=== PATIENT | female | born 1955 | race Asian ===

== ENCOUNTER 2021-01-10 18:25 | Inpatient (IN) | payer MEDICARE, BC ==
[~2021-01-10] VITALS: Ht 160 cm; Wt 52.3 kg
[2021-01-10] MEDS ORDERED: LEXAPRO PO (19:23)
[2021-01-10] MEDS ORDERED: ZYPREXA PO (19:23)
--- NOTE | 2021-01-10 21:00 | NUR ---
Restraint was not applied due to patient being directable. Patient attempting to elope from ER. ERMD aware.
[2021-01-10 21:02] LABS: HEMATOCRIT 39.9 % (31.2-41.9); MEAN CORPUSCULAR HEMOGLOBIN 21.8 uug (24.7-32.8); MEAN CORPUSCULAR VOLUME 68.3 fL (75.5-95.3); PLATELET COUNT (AUTO) 306 K/uL (179-408)
[2021-01-10 21:13] LABS: CARBON DIOXIDE 28 mmol/L (21-32); CHLORIDE 104 mmol/L (98-107); CREATININE 0.7 mg/dL (0.6-1.3); ETHANOL < 3 MG/DL (0-0); GLUCOSE 123 mg/dL (74-106); POTASSIUM 3.4 mmol/L (3.5-5.1); UREA NITROGEN, BLOOD 21 mg/dL (7-18)
[2021-01-10 21:17] LABS: ALANINE AMINOTRANSFERASE 13 U/L (14-59); ALKALINE PHOSPHATASE 74 U/L (50-136); ASPARTATE AMINOTRANSFERASE 19 U/L (15-37); BILIRUBIN,DIRECT 0.2 mg/dL (0.0-0.2); BILIRUBIN,TOTAL 0.8 mg/dL (0.2-1.0); TOTAL PROTEIN, SERUM 8.5 g/dL (6.4-8.2)
[2021-01-10 21:18] LABS: ACETAMINOPHEN < 2.0 ug/mL (10-30)
[2021-01-10] MEDS ORDERED: POTASSIUM BICARBONATE/CIT AC 25 MEQ TABLET.EFF PO ONE (21:30)
[2021-01-10] MEDS ORDERED: POTASSIUM BICARBONATE/CIT AC 25 MEQ TABLET.EFF ONE (21:55)
--- NOTE | 2021-01-10 22:00 | NUR ---
Patient attempted to Elope ER twice. Called hospital secruity to standby and watch patient as 1:1.
--- NOTE | 2021-01-10 22:35 | NUR ---
Patient's daughter will bring home meds in AM. Kira Askew
--- NOTE | 2021-01-10 22:37 | NUR ---
Medically cleared by ERMD.
--- NOTE | 2021-01-11 00:14 | NUR ---
Transfered to 3rd floor via wheelchair as MHU overflow.
--- NOTE | 2021-01-11 00:15 | NUR ---
65 YEAR OLD FEMALE BROUGHT TO MED-SURG UNIT( GPS OVERFLOW) FROM ER VIA WHEELCHAIR, ACCOMPANIED BY ER STAFF AND 1:1 SITTER. PT UNDER THE CARE OF DR. BALDWIN AND DR. COUCH. PT ON A 5150 HOLD FOR DTS AND GD. ACCORDING TO THE HOLD ,PT IS REPEATEDLY WALKING OUT OF THE HOUSE NAKED STATING "GHOST" ARE HERE " TO TAKE HER AWAY" AND THAT "HER LIFE IS ENDING." DAUGHTER SUSPECTS PT NOT TAKING HER PSYCHIATRIC MEDICATIONS. RN CONCURS WITH THE HOLD. ADVISEMENT AND PATIENT RIGHTS HANDBOOK GIVEN. UPON FACE TO FACE ASSESSMENT, PT APPEARS TO REFLECT WHAT IS ON THE HOLD. PT IS ALERT AND ORIENTEDX2 AND COOPERATIVE WITH ASSESSMENT. PT NO HALLUCINATIONS NOTED AT THIS TIME. ORIENTED PATIENT ABOUT THE UNIT RULES. VITAL SIGNS STABLE. PATIENT IS ABLE TO AMBULATE. PT REFUSED TO LET STAFF CHECKED HER SKIN AND TAKE OFF HER CLOTHES. RN ASKED IF SHE HAS ANY WOUNDS AND PT STATED NO WOUND. PT REFUSED TO LET HER PHOTO TAKEN. SENIOR LIVING ASSESSMENT DONE. BELONGING LIST DONE. SAFETY INITIATED. PT IN NO PHYSICAL DISTRESS. WILL CONTINUE TO MONITOR. SITTER AT BEDSIDE FOR SAFETY.
[2021-01-11 00:38] VITALS: BP 148/61
[2021-01-11] MEDS ORDERED: LORAZEPAM 0.5 MG TABLET PO PRN (00:45)
[2021-01-11] MEDS ORDERED: ACETAMINOPHEN 325 MG TABLET PO PRN (00:45)
[2021-01-11] MEDS ORDERED: BLOOD SUGAR DIAGNOSTIC 1 EACH STRIP VI ONE (00:45)
[2021-01-11] MEDS ORDERED: MAGNESIUM HYDROXIDE 30 ML LIQUID UDC PO PRN (00:45)
[2021-01-11] MEDS ORDERED: ZOLPIDEM 5 MG TABLET PO PRN (00:45)
[2021-01-11] MEDS ORDERED: MAG HYDROX/AL HYDROX/SIMETH 30 ML LIQUID UDC PO PRN (00:45)
--- NOTE | 2021-01-11 05:59 | NUR ---
PT IN NO ACUTE DISTRESS. SITTER AT BEDSIDE FOR SAFETY. PT ON ROOM AIR. PT AFEBRILE AND VITAL SIGNS WNL. PT WITH NO HALLUCINATIONS. PT ALERT AND ORIENTEDX2. SAFETY AND COMFORT PROVIDED. ALL NEEDS ARE MET. WILL ENDORSE TO INCOMING NURSE FOR CONTINUITY OF CARE.
--- NOTE | 2021-01-11 08:00 | NUR ---
pt in bed, with 1:1 sitter at bedside, on room air, no signs of distress, no reports of pain, ambulatory, pt on 5150 hold. will continue to monitor.
[2021-01-11] MEDS: VENLAFAXINE XR 37.5 MG CAP.SR.24H PO SCH (11:18)
--- NOTE | 2021-01-11 11:39 | NUR ---
Firearms Report: Non Destructive Testing Technician completed and submitted a [employer] firearms report for 5150 grave disability certifications. A copy of report has been placed in patient chart.
--- NOTE | 2021-01-11 13:58 | NUR ---
pt transferred back down to [facility]. pt chart giving to INSULATION INSTALLER to take to psych nurse.
--- NOTE | 2021-01-11 14:45 | NUR ---
GPS: Pt arrived to mental health unit. wheelchaired by a TRAVEL AGENT from MedSurg unit. pt alert/oriented x3. pt verbally responsive when asked and denies any discomfort at this time. received report from MS nurse about the pt. Pt had a good spirit talking about her country in [facility]. Spoke to Jennifer, her daughter about home meds and she mentioned about pr getting escitalopram 10mg daily and olanzapine 5mg tab at night and ambien (unknown dose) for insomnia as needed. daughter said per DR. Chance, he weill change meds because it knocks off the pt and pt have episode of trashing the medications at home.
[2021-01-11 16:00] VITALS: BP 129/73
[2021-01-11 20:34] VITALS: BP 124/73
[2021-01-11] MEDS: QUETIAPINE FUMARATE 25 MG TABLET PO SCH (20:47)
[2021-01-12 07:30] VITALS: BP 125/69
[2021-01-12] MEDS: VENLAFAXINE XR 37.5 MG CAP.SR.24H PO SCH (09:12)
--- NOTE | 2021-01-12 15:24 | NUR ---
[facility] Family Contact: SONY spoke with patient's daughter, Jennifer ([phone]) and discussed treatment and discharge plan. Jennifer stated they would like the patient to return home. SONY discussed safe discharge planning and aftercare resources. SONY and Jennifer discussed the possibility of Home Health Services and/or Caregiving resources.
--- NOTE | 2021-01-12 15:24 | NUR ---
[facility] Initial Discharge Plan: Pt resides at home [address] [place] [address] with her . Patient's daughter, Jennifer ([phone]) is involved in the treatment and discharge plan. Jennifer stated they would like the patient to return home. SONY will continue to work with patient, family and MD to ensure a safe and proper discharge plan.
--- NOTE | 2021-01-12 15:44 | NUR ---
Treatment Plan: Pt unable to sign treatment plan form due to disorganized thought process.
--- NOTE | 2021-01-12 15:52 | NUR ---
Gps/Platform Inspector- Isolative,, making simple needs known, encouraged participation in her group therapy, encouraged to verbalized feelings and needs.
[2021-01-12 16:00] VITALS: BP 115/76
[2021-01-12 19:57] VITALS: BP 126/70
[2021-01-12] MEDS: QUETIAPINE FUMARATE 25 MG TABLET PO SCH (20:04)
[2021-01-13 07:30] VITALS: BP 113/71
[2021-01-13] MEDS: VENLAFAXINE XR 37.5 MG CAP.SR.24H PO SCH (09:19)
[2021-01-13] MEDS: GLUCERNA SHAKE 237 ML CAN PO SCH ×2 (12:37→16:25)
--- NOTE | 2021-01-13 15:14 | NUR ---
Gps/Tool Carrier- Informed patient the need to collect urine specimen for UA , claimed she just been to the bathroom, offered to try to void again no void noted. Will attempt to collect in a later time, per patient will notify staff
[2021-01-13 16:02] VITALS: BP 118/75
--- NOTE | 2021-01-13 17:17 | NUR ---
Gps/Stallion Keeper- After few tries, to the bathroom, was able to collect urine specimen for UA, sent to lab.Patient remains isolative, encouraged eating in the dinning room during meals.
[2021-01-13 17:21] LABS: *BILIRUBIN,URIN NEGATIVE (NEGATIVE); *BLOOD, URINE NEGATIVE (NEGATIVE); *CLARITY,URINE CLEAR (CLEAR); *COLOR,URINE YELLOW (YELLOW); *KETONES,URINE NEGATIVE (NEGATIVE); LEUKOCYTE ESTERASE ,URINE NEGATIVE (NEGATIVE); NITRITE, URINE NEGATIVE (NEGATIVE); UGLUCOSE NEGATIVE (NEGATIVE)
[2021-01-13 17:30] LABS: *AMPHETAMINE, URINE NEGATIVE (NEGATIVE); *CANNABINOID, URINE NEGATIVE (NEGATIVE); *COCCAINE, URINE NEGATIVE (NEGATIVE); *OPIATE, URINE NEGATIVE (NEGATIVE); *PHENCYCLIDINE SCREEN,URINE NEGATIVE (NEGATIVE)
[2021-01-13 20:09] VITALS: BP 119/63
[2021-01-13] MEDS: QUETIAPINE FUMARATE 25 MG TABLET PO SCH (20:48)
--- NOTE | 2021-01-14 06:30 | NUR ---
GPS: Pt.slept 9 hrs last night. Remains isolative,withdrawn,but denies SI. No further visual hallucinations reported. Safe environment provided. Will continue to monitor.
[2021-01-14 07:30] VITALS: BP 129/72
[2021-01-14] MEDS: VENLAFAXINE XR 37.5 MG CAP.SR.24H PO SCH (08:46)
[2021-01-14] MEDS: GLUCERNA SHAKE 237 ML CAN PO SCH ×2 (08:47→16:42)
--- NOTE | 2021-01-14 14:51 | NUR ---
Gps/Substance Abuse Technician- Refused to attend her group therapy this am, remains isolative, answers simple questions, guarded , denies any hallucinations , had been compliant with her routine meds.
[2021-01-14 16:00] VITALS: BP 121/78
[2021-01-14 20:00] VITALS: BP 120/71
[2021-01-14] MEDS: QUETIAPINE FUMARATE 25 MG TABLET PO SCH (20:13)
--- NOTE | 2021-01-15 04:55 | NUR ---
Received patient in her bed at the beginning of the shift. Withdrawn and not willing to engage in a conversation. Routine medication compliant. Refused snack . Patient will not come out of the room, just stick her head out. Patient denies hallucinations, but is clearly paranoid. Sleep hours so far are 8.15. Continue to monitor for safety and to provide reassurance when needed. No acute issues at this time.
[2021-01-15 07:30] VITALS: BP 121/76
[2021-01-15] MEDS: GLUCERNA SHAKE 237 ML CAN PO SCH ×2 (08:44→17:05)
[2021-01-15] MEDS: VENLAFAXINE XR 75 MG TAB.ER.24H PO SCH (08:45)
--- NOTE | 2021-01-15 09:59 | NUR ---
Gps/Field Sampling Technician- Encouraged to attend her am group therapy, staring , remains isolative.Per patient at home she only takes 2 pills at night, she does not take any medications during the day , but has been compliant with routine meds. while in the MHU , claimed she does not remember what meds. she's taking at home.
--- NOTE | 2021-01-15 15:49 | NUR ---
Gps/Supervisor Scouring Pads-Patient's younger sister Petra called wants to speak to the Bleacher Lard, and wants to know discharge plan, requesting if she can be moved to Psych. [facility] closer to [facility] .Informed needed to speak to the Psychiatrist regarding her progress, and her dc. plan. Per Twiner (sister) patient had been hospitalized in [facility]. [facility] ([facility] for about 3 weeks )and had been non compliant with her medications at home. Patient lives w/ her who is much older than her per her sister.
[2021-01-15 16:00] VITALS: BP 127/80
[2021-01-15 19:49] VITALS: BP 136/77
[2021-01-15] MEDS: QUETIAPINE FUMARATE 25 MG TABLET PO SCH (20:01)
--- NOTE | 2021-01-16 05:52 | NUR ---
GPS: Pt now awake showering at this time. Slept 8 hrs.last night. No escalation of behavior noted. Denies SI/VH. Re-assured prn. Will continue to monitor.
[2021-01-16 07:47] VITALS: BP 129/75
[2021-01-16] MEDS: VENLAFAXINE XR 75 MG TAB.ER.24H PO SCH (08:33)
[2021-01-16] MEDS: GLUCERNA SHAKE 237 ML CAN PO SCH ×2 (08:33→16:42)
--- NOTE | 2021-01-16 12:13 | NUR ---
Patient's 5250 was upheld today in the probable cause hearing upheld for grave disability.
[2021-01-16 15:45] VITALS: BP 147/79
[2021-01-16 19:56] VITALS: BP 137/80
[2021-01-16] MEDS: QUETIAPINE FUMARATE 25 MG TABLET PO SCH (20:28)
--- NOTE | 2021-01-16 22:00 | NUR ---
received to care, sittiting in bed, with legs dangling. does not initiate interactions, but responds appropriately. compliant with medications. snack and fluids left at bedside. as of now, she continues to sit in same position. no distress noted. will continue to monitor closely.
--- NOTE | 2021-01-17 01:00 | NUR ---
remains sitting in bed, in the dark. declined sleeping medications, several times. no distress noted.
--- NOTE | 2021-01-17 02:32 | NUR ---
appears to be asleep. no distress noted.
[2021-01-17 07:30] VITALS: BP 125/80
[2021-01-17] MEDS: GLUCERNA SHAKE 237 ML CAN PO SCH ×2 (08:40→16:47)
[2021-01-17] MEDS: VENLAFAXINE XR 75 MG TAB.ER.24H PO SCH (08:40)
[2021-01-17 15:04] VITALS: BP 115/79
[2021-01-17] MEDS: QUETIAPINE FUMARATE 25 MG TABLET PO SCH (21:17)
[2021-01-17 21:23] VITALS: BP 148/76
--- NOTE | 2021-01-17 22:00 | NUR ---
received to care, sitting at bedside, legs dangling from bed. pleasant upon approach. remains isolative, but interacts with staff, when engaged, compliant with medications. denies psychotic sx, but seems distracted. snacks offered, but she declined, stating she would ask staff for something, if hungry. parag crackers and milk left at bedside. no distress noted. will continue to monitor closely.
--- NOTE | 2021-01-17 22:30 | NUR ---
PRN ambien, given for insomnia.
--- NOTE | 2021-01-17 23:15 | NUR ---
appears to be asleep. no distress, noted.
--- NOTE | 2021-01-18 06:00 | NUR ---
slept 8 hours.
[2021-01-18 07:43] VITALS: BP 107/63
[2021-01-18] MEDS: GLUCERNA SHAKE 237 ML CAN PO SCH ×2 (08:00→17:36)
[2021-01-18] MEDS: QUETIAPINE FUMARATE 25 MG TABLET PO SCH ×2 (09:23→20:59)
[2021-01-18] MEDS: VENLAFAXINE XR 75 MG TAB.ER.24H PO SCH (09:23)
[2021-01-18 16:07] VITALS: BP 119/77
--- NOTE | 2021-01-18 16:48 | NUR ---
Social Work Discharge Planning Spoke with Arturo Son ([phone]) and she will pick patient pick and transport her home when she is stable. Patient lives with her at [address] [place] [phone] ( no home phone). She will follow up with outpatient psychiatrist, Dr Soledad Fisher, [address] [place] [address]. [address], [facility] [address] ([phone]).
--- NOTE | 2021-01-18 17:19 | NUR ---
[facility] Home Health Contact SONY received call from Malena with [facility] ([phone]) requesting home health order. LAY faxed home health order to [phone]. SONY faxed requested medical records to Fiona at [phone].
--- NOTE | 2021-01-18 17:56 | NUR ---
GPS: PT ALERT AND COOPERATIVE WITH CARE. LIKES PACING ALONG THE HALLWAY. FLAT AFFECT. ANSWERS CLEARLY WHEN ASKED. TOLERATED AND TAKES HER MEDICATION EASILY.
[2021-01-18 20:03] VITALS: BP 115/70
--- NOTE | 2021-01-18 22:00 | NUR ---
received to care, lying in bed, pleasant upon approach. denies any psychotic sx. compliant with medications. bedtime snack and fluids given. as of now, she appears to be asleep. no distress noted. will continue to monitor closely.
--- NOTE | 2021-01-19 06:00 | NUR ---
slept 8.75 hours.
[2021-01-19 07:58] VITALS: BP 114/69
[2021-01-19] MEDS: GLUCERNA SHAKE 237 ML CAN PO SCH ×3 (08:00→17:36)
[2021-01-19] MEDS: QUETIAPINE FUMARATE 25 MG TABLET PO SCH ×2 (08:10→20:03)
[2021-01-19] MEDS: VENLAFAXINE XR 75 MG TAB.ER.24H PO SCH (08:10)
[2021-01-19 16:17] VITALS: BP 118/72
--- NOTE | 2021-01-19 18:01 | NUR ---
GPS: PT STAYED ON BED MOST OF THE TIME. ENCOURAGED PT TO PARTICIPATE GROUP THERAPY. PT SEEN PACING THE HALLWAY EARLY SHIFT. COOPERATIVE WITH CARE AND TAKES THE MEDICATION AND TOLERATED WELL.
--- NOTE | 2021-01-19 19:00 | NUR ---
GPS: RECEIVED LEFT BREAST ULTRASOUND RESULT, WITH SUSPICIOUS MASSES AT 10 AND 12 O'CLOCK POSITION. ULTRASOUND-GUIDED BIOPSY OF BOTH LESION IS RECOMMENDED. BIRADS 4: SUSPICIOUS. DIAGNOSTIC BILATERAL MAMMOGRAM PRIOR TO BIOPSY IS RECOMMENDED.
[2021-01-19 20:01] VITALS: BP 116/70
--- NOTE | 2021-01-20 06:36 | NUR ---
GPS: Pt.slept 8 hrs.last night. No new behavioral problems exhibited. Denies visual hallucinations. Denied pain when asked earlier. Safety emphasized. Will continue to monitor.
[2021-01-20 07:30] VITALS: BP 110/62
[2021-01-20] MEDS: VENLAFAXINE XR 75 MG TAB.ER.24H PO SCH (08:02)
[2021-01-20] MEDS: GLUCERNA SHAKE 237 ML CAN PO SCH ×3 (08:02→16:54)
[2021-01-20] MEDS: QUETIAPINE FUMARATE 25 MG TABLET PO SCH ×2 (08:02→20:03)
[2021-01-20 16:00] VITALS: BP 113/67
[2021-01-20 20:13] VITALS: BP 117/75
--- NOTE | 2021-01-21 05:49 | NUR ---
GPS: Pt. slept 7.45 last night. Remains isolative,withdrawn but denies SI. Denies visual hallucinations when asked. Re-assured prn. Monitored for safety.
[2021-01-21 08:06] VITALS: BP 112/70
[2021-01-21] MEDS: GLUCERNA SHAKE 237 ML CAN PO SCH ×3 (08:39→17:41)
[2021-01-21] MEDS: VENLAFAXINE XR 75 MG TAB.ER.24H PO SCH (08:39)
[2021-01-21] MEDS: QUETIAPINE FUMARATE 25 MG TABLET PO SCH ×2 (08:39→20:38)
[2021-01-21] MEDS: OMEGA-3 FATTY ACIDS/FISH OIL CAPSULE PO SCH (09:42)
[2021-01-21 17:19] VITALS: BP 112/71
--- NOTE | 2021-01-21 18:09 | NUR ---
Remain isolative through the shift. compliant with meds and care. no agitation noted continue plan of care.
[2021-01-21 19:58] VITALS: BP 109/65
--- NOTE | 2021-01-21 22:34 | NUR ---
At start of the shift, Dr. Anderson asked this telegraphic typewriter repairer to accompany her to the patients room. The doctor examined the patient and told the patient that she had breast cancer. The doctor recommended that the patient have a CT scan for further evaluation. The patient said No to the CT scan. The doctor was persistent and repeatedly recommended testing. The patient appeared adamant about not having anything done . Afterwards, Dr. Vo made a phone call to the family, which the doctor left a message for a call back. This patient and the family have known about a problem in her breast for over two years ,per LAKHWINDER Monk's notes. Dr Anderson validated this with this telegraphic typewriter repairer. A short time later , this telegraphic typewriter repairer received a phone call from Dr Anderson . The doctor said that she had spoken to the patients " sister," and to go ahead and get a consent for a CT scan with IV contrast. This telegraphic typewriter repairer explained that the patient has the right to refuses. The doctors response was " Since the patient is in the mental rivero, she cannot think okay and cant make her own decisions. " The patient does not have any evidence of a Conservator or Durable Power of Automotive Electrician Helper allowing others to make her health care decisions . Pursuing this issue of having the CT scan against the patients will is contrary to the Mental Health Patients Rights as put in place for [facility] facilities. The doctor insisted to get a consent and to proceed tomorrow. A consent was made and this telegraphic typewriter repairer spent a good amount of time with the patent , who continued to refuse and would not sign the consent. This telegraphic typewriter repairer will try again in the morning.
--- NOTE | 2021-01-22 04:22 | NUR ---
Correction of previous charting, The Doctor is Dr. Vo, not Dr. Anderson.
--- NOTE | 2021-01-22 06:39 | NUR ---
This scientific technical writer used the [employer] Phone to translate in Cantonese with line servicer # [id number]. The procedure this am was explained in detail to the patient. The patient did agree to the procedure and signed the consent. A IV lock was inserted in the left forearm. The patient tolerated it well. All patients questions were answered. No distress at this time.
[2021-01-22 07:12] LABS: HEMATOCRIT 44.9 % (31.2-41.9); MEAN CORPUSCULAR HEMOGLOBIN 21.7 uug (24.7-32.8); MEAN CORPUSCULAR VOLUME 69.8 fL (75.5-95.3); PLATELET COUNT (AUTO) 314 K/uL (179-408)
[2021-01-22] MEDS ORDERED: IOHEXOL 300MG/ML 100 ML INFUS..BTL ONE (07:27)
[2021-01-22] MEDS ORDERED: SWABABLE VALVE TRANSFER SET EA MC ONE (07:27)
[2021-01-22] MEDS ORDERED: IV NORMAL SALINE 250 ML IV ONE (07:27)
[2021-01-22 07:31] LABS: BILIRUBIN,TOTAL 0.6 mg/dL (0.2-1.0); CREATININE 0.8 mg/dL (0.6-1.3); MAGNESIUM 2.7 mg/dL (1.8-2.4); PHOSPHOROUS 3.9 mg/dL (2.5-4.9); POTASSIUM 4.2 mmol/L (3.5-5.1); TOTAL PROTEIN, SERUM 8.6 g/dL (6.4-8.2)
--- NOTE | 2021-01-22 08:00 | NUR ---
CT scan done, heplock removed for safety reasons.
[2021-01-22 08:04] VITALS: BP 112/69
[2021-01-22] MEDS: QUETIAPINE FUMARATE 25 MG TABLET PO SCH ×2 (08:09→20:38)
[2021-01-22] MEDS: OMEGA-3 FATTY ACIDS/FISH OIL CAPSULE PO SCH (08:09)
[2021-01-22] MEDS: VENLAFAXINE XR 75 MG TAB.ER.24H PO SCH (08:09)
[2021-01-22] MEDS: GLUCERNA SHAKE 237 ML CAN PO SCH ×3 (08:10→16:18)
[2021-01-22 09:55] LABS: EOSINOPHILS % (MANUAL) 2 % (0-8); LYMPHOCYTES % (MANUAL) 38 % (20-40); METAMYELOCYTES % 1 % (0-1); MONOCYTES % (MANUAL) 5 % (2-10); NEUTROPHILS % (MANUAL) 54 % (42-75)
--- NOTE | 2021-01-22 16:13 | NUR ---
patient daughter Rody called, appropriate questions answered.
[2021-01-22 16:14] VITALS: BP 112/63
--- NOTE | 2021-01-22 16:15 | NUR ---
patient daughter requested to have psychiatrist dr hanks office number, provided with information, also provided with follow up information after discharge.
[2021-01-22 20:02] VITALS: BP 118/64
--- NOTE | 2021-01-23 06:00 | NUR ---
slept 8.0 hours, total. continues to sleep. no distress noted.
[2021-01-23 07:48] VITALS: BP 118/73
[2021-01-23] MEDS: VENLAFAXINE XR 75 MG TAB.ER.24H PO SCH (08:55)
[2021-01-23] MEDS: OMEGA-3 FATTY ACIDS/FISH OIL CAPSULE PO SCH (08:55)
[2021-01-23] MEDS: QUETIAPINE FUMARATE 25 MG TABLET PO SCH (08:55)
[2021-01-23] MEDS: GLUCERNA SHAKE 237 ML CAN PO SCH (08:56)
--- NOTE | 2021-01-23 09:00 | NUR ---
GPS: PT ALERT AND VERBALLY RESPONSIVE, ORIENTED. PT COOPERATIVE WITH CARE. MEDICATION TOLERATED WELL. PT IS IN GOOD SPIRIT AND WILL BE DISCHARGE TODAY WILL BE ZOO VETERINARIAN BY DAUGHTER LORENE.
--- NOTE | 2021-01-23 09:57 | NUR ---
Discharge Note Patient will be discharged home [address] [place] [address] with her . Patients sister Arturo Son ([phone]) will pick-up patient today at 1pm. Patient's daughter, Jennifer ([phone]) is aware and agreeable with discharge plan. Patient is alert and oriented x3 and is aware and agreeable with discharge plan. Patient denies suicidal or homicidal ideation. Patient presents with appropriate mood and congruent affect. Patient will be following up with her psychiatrist Dr. Phillip Rowe [address], [place] [address] ([phone]). Patient and patients daughter Jennifer are provided with [facility] Caregiving resource, Marcelino Polanco ([phone]) for caregiving services upon discharge.
--- NOTE | 2021-01-23 12:29 | NUR ---
GPS: PT DISCHARGED WHEELED FROM THE MHU AND PICKED UP BY SISTER JOSH LOPEZ. PT ABLE TO TAKE CARE OF HERSELF. COOPERATIVE WITH CARE AND WITH TAKING MEDICATION. NO HALLUCINATION NOTED AT THIS TIME. PT HAPPY TO BE DISCHARGE TODAY. BELONGINGS GIVEN AND TEACHINGS DONE.
[2021-01-25 23:04] LABS: CANCER ANTIGEN 15-3 41.5 High
--- NOTE | 2021-01-30 14:11 | NUR ---
Late Entry: SW Family Contact Received voice message from pt's daughter Jennifer ([phone]) requesting referral for mental health resources with Upper Sorbian-speaking therapists. SONY spoke with Jennifer and provided resource for [facility] at [address] [place] [address] ([phone]).
== END 2021-01-23 12:30 | disposition home or self-care (01) | DRG 885 ==
LOC: ER 18:27 → GPSOV3 22:00 → GPS 01-11 14:41
PROVIDERS: ADMIT Psychiatry & Neurology Psychiatry; ATTEND Nurse Practitioner Family
DX: F31.5 Bipolar disorder, current episode depressed, severe, with psychotic features (principal); G93.40 Encephalopathy, unspecified; I44.0 Atrioventricular block, first degree; Z95.0 Presence of cardiac pacemaker; E87.6 Hypokalemia; C50.912 Malignant neoplasm of unspecified site of left female breast; E78.5 Hyperlipidemia, unspecified; F03.90 Unspecified dementia, unspecified severity, without behavioral disturbance, psychotic disturbance, mood disturbance, and anxiety; R73.9 Hyperglycemia, unspecified; Z91.14 Patient's other noncompliance with medication regimen; Z95.2 Presence of prosthetic heart valve; R79.89 Other specified abnormal findings of blood chemistry
CPT/HCPCS: 36415; 70030-TC; 70450; 71045; 71260; 76642; 82378; 83550; 83735; 84100; 85025; 86300; 93005; 97161; A4663; G0480; J7050; Q9967